=== PATIENT | male | born 1980 | race Two or more races ===

== ENCOUNTER 2020-09-04 04:51 | Emergency (ER) | payer OTHER ==
[~2020-09-04] VITALS: Ht 177.8 cm; Wt 102.1 kg
[2020-09-04 04:51] VITALS: BP 127/77
[2020-09-04] MEDS ORDERED: IBUPROFEN 800 MG TAB PO ONE (06:45)
== END 2020-09-04 07:09 | disposition home or self-care (01) ==
LOC: ER 04:51
DX: S93.602A Unspecified sprain of left foot, initial encounter (principal); Z90.49 Acquired absence of other specified parts of digestive tract; Z90.89 Acquired absence of other organs; X50.1XXA Overexertion from prolonged static or awkward postures, initial encounter; Y93.67 Activity, basketball; Y92.89 Other specified places as the place of occurrence of the external cause; Y99.8 Other external cause status
CPT/HCPCS: 73630